=== PATIENT | female | born 1995 | race Caucasian/White ===

== ENCOUNTER 2019-03-26 00:23 | Emergency (ER) | payer MEDICAID ==
[~2019-03-26] VITALS: Ht 147.3 cm; Wt 79.8 kg
[2019-03-26 00:26] VITALS: BP 127/77; Ht 147.3 cm; Wt 79.8 kg
== END 2019-03-26 01:21 | disposition home or self-care (01) ==
LOC: ED 00:23
DX: L60.0 Ingrowing nail (principal)
CPT/HCPCS: J2001

== ENCOUNTER 2019-03-28 21:18 | Emergency (ER) | payer MEDICAID ==
[~2019-03-28] VITALS: Ht 147.3 cm; Wt 77.1 kg
[2019-03-28 21:43] VITALS: Ht 147.3 cm; Wt 77.1 kg
[2019-03-28 22:59] VITALS: BP 127/85
== END 2019-03-28 22:59 | disposition home or self-care (01) ==
LOC: ED 21:18
DX: L60.0 Ingrowing nail (principal)